=== PATIENT | male | born 1965 | race Caucasian/White ===

== ENCOUNTER 2017-01-17 09:02 | Emergency (ER) | payer MEDICARE ==
[2017-01-17] MEDS ORDERED: 0.9% SODIUM CHLORIDE 250ML BAG IV ONE (09:24)
--- NOTE | 2017-01-17 09:33 | Emergency Department Record ---
History of Present Illness - General Chief complaint: Extremity Problem Stated complaint: R LEG SWOLLEN Time Seen by Provider: 01/17/17 09:12 Source: Patient Mode of Arrival: Ambulatory - History of Present Illness Initial comments: The patient states that two days ago he was especially fatigued the entire day and slept. Yesterday he noticed his right lower leg was red, warm and swollen. He states he is short of breath when he walks across the department today. He denies f,c,n,v,d,cp, st, cough, scar. He has a history of CVA twice in 2012 and 2013; DM, [place] 2014; 3 cardiac stents and a valve replacement 2008, CHF, COPD. He denies PE, DVT in the past. He takes aspirin daily but no other blood thinners. MD Complaint: Extremity pain, Extremity swelling Onset/Timin -: Days(s) Location: Right, Knee Radiation: Proximal Severity scale (1-10): 4 Quality: Aching Consistency: Constant Improves with: Nothing - Related Data Home Medications Medication Instructions Recorded Confirmed Last Taken Aspirin 81 mg PO QD tab.chew 06/20/16 01/17/17 1 Day Ago ~01/16/17 Furosemide [Lasix] 20 mg PO DAILY 01/17/17 01/17/17 1 Day Ago ~01/16/17 Losartan Potassium [Cozaar] 50 mg PO DAILY 01/17/17 01/17/17 1 Day Ago ~01/16/17 Allergies Allergy/AdvReac Type Severity Reaction Status Date / Time No Known Drug Allergies Allergy Verified 01/17/17 09:10 Travel Screening - Travel/Exposure Within Last 30 Days Have you traveled within the last 30 days?: No - Travel/Exposure Within Last Year Have you traveled outside the [place] in the last year?: No - Additonal Travel Details Have you been exposed to anyone with a communicable illness?: No - Travel Symptoms Symptom Screening: None Review of Systems Reviewed: No additional complaints except as noted below Constitutional: Reports: As per HPI. Denies: Chills, Fever, Malaise, Night sweats, Weakness, Weight change Eyes: Reports: As per HPI. Denies: Eye discharge, Eye pain, Photophobia, Vision change ENT: Reports: As per HPI. Denies: Congestion, Dental pain, Ear pain, Epistaxis , Hearing loss, Throat pain Respiratory: Reports: As per HPI. Denies: Cough, Dyspnea, Hemoptysis, Stridor, Wheezes Cardiovascular: Reports: As per HPI. Denies: Arrhythmia, Chest pain, Dyspnea on exertion, Edema, Murmurs, Orthopnea, Palpitations, Paroxysmal nocturnal dyspnea, Rheumatic Fever, Syncope Endocrine: Reports: As per HPI. Denies: Fatigue, Heat or cold intolerance, Polydipsia, Polyuria Gastrointestinal: Reports: As per HPI. Denies: Abdominal pain, Constipation, Diarrhea, Hematemesis, Hematochezia, Melena, Nausea, Vomiting Genitourinary: Reports: As per HPI. Denies: Dysuria, Frequency, Hematuria, Incontinence, Retention, Testicular pain, Testicular mass, Urgency Musculoskeletal: Reports: As per HPI. Denies: Arthralgia, Back pain, Gout, Joint swelling, Myalgia, Neck pain Skin: Reports: As per HPI. Denies: Bruising, Change in color, Change in hair/ nails, Lesions, Pruritus, Rash Neurological: Reports: As per HPI. Denies: Abnormal gait, Confusion, Headache, Numbness, Paresthesias, Seizure, Tingling, Tremors, Vertigo, Weakness Psychiatric: Reports: As per HPI. Denies: Anxiety, Auditory hallucinations, Depression, Homicidal thoughts, Suicidal thoughts, Visual hallucinations Hematological/Lymphatic: Reports: As per HPI. Denies: Anemia, Blood Clots, Easy bleeding, Easy bruising, Swollen glands Past Medical History - SOCIAL HISTORY Smoking Status: Former smoker Alcohol Use: None Drug Use: None - RESPIRATORY Hx Respiratory Disorders: Yes - CARDIOVASCULAR Hx Cardio Disorders: Yes Hx Cardiac Cath: Yes Hx Chest Pain: Yes (intermittent since CVA) Hx Heart Attack: Yes (shown 06/2015 ekg) Hx Hypertension: Yes Hx Coronary Artery Disease: Yes Hx Coronary Stent: Yes (x's 3 in 2008) Hx Percutaneous Transluminal Coronary Angioplasty (PTCA): Yes Comment:: high cholesterol - NEURO Hx Neuro Disorders: Yes Hx CVA: Yes (2012, 2013) Hx Dizziness: Yes (off balance before stroke) Hx Weakness: Yes (generalized weakness since CVA) - GI Hx GI Disorders: No - Hx Genitourinary Disorders: No - ENDOCRINE Hx Endocrine Disorders: Yes - MUSCULOSKELETAL Hx Musculoskeletal Disorders: Yes Hx Arthritis: Yes - PSYCH Hx Psych Problems: No - HEMATOLOGY/ONCOLOGY Hx Hematology/Oncology Disorders: No Family Medical History Any Significant Family History?: Yes Hx Heart Disease: Father, Brother/Sister *Heart Comment: [place] Physical Exam - General General Appearance: Alert, Oriented x3, Cooperative, Mild distress (limping into room, SOB) - Head Head exam: Normal inspection - Eye Eye exam: Normal appearance, PERRL Pupils: Normal accommodation - ENT ENT exam: Normal exam, Mucous membranes moist, Normal external ear exam, Normal orophraynx, TM's normal bilaterally Ear exam: Normal external inspection. negative: External canal tenderness Nasal Exam: Normal inspection. negative: Discharge, Sinus tenderness Mouth exam: Normal external inspection, Tongue normal Teeth exam: Normal inspection. negative: Dental caries Throat exam: Normal inspection. negative: Tonsillar erythema, Tonsillar exudate - Neck Neck exam: Normal inspection, Full ROM. negative: Lymphadenopathy, Meningismus , Tenderness - Respiratory Respiratory exam: Decreased breath sounds, Prolonged expiratory. negative: Respiratory distress - Cardiovascular Cardiovascular Exam: Normal rhythm, Normal heart sounds, Tachycardia - GI/Abdominal GI/Abdominal exam: Soft, Normal bowel sounds. negative: Tenderness - Rectal Rectal exam: Deferred - exam: Deferred - Extremities Extremities exam: Full ROM, Normal capillary refill, Pedal edema, Tenderness ( tender, warm, erythematous right calf which is NONcircumferential, no calf tenderness; proximal lymphangitic spread up anterior inner thigh to groin. CMS intact distally with swelling distally.) - Back Back exam: Reports: Normal inspection, Full ROM. Denies: Muscle spasm, Rash noted, Tenderness - Neurological Neurological exam: Alert, Normal gait, Oriented X3, Reflexes normal - Psychiatric Psychiatric exam: Normal affect, Normal mood - Skin Skin exam: Dry, Intact, Normal color, Warm Course Vital Signs 01/17/17 09:04 Temperature 98.2 F Pulse Rate 115 H Respiratory 18 Rate Blood Pressure 128/78 Pulse Ox 95 - Reevaluation(s) Reevaluation #1: Spoke with Dr. Benitez forensic chemist certified professional ergonomist at [facility] who refused to take patient as he believes the patient doesn't need a doppler. Spoke with 01/17/17 11:18 Reevaluation #2: SHANIQUE Montenegro N.P. for Dr. Kowalski who accepts patient for direct admit at [facility]. 01/17/17 11:43 Medical Decision Making - Management Options MDM Management: Additional Work-up Planned (e.g. ADM/Transfer/OP Study) ( transfer to [facility] for direct admit and dopplers of leg.) - Data Complexity MDM Data: Labs Ordered and/or Reviewed, X-Ray Ordered and/or Reviewed (CXR two view: Mild CMG, no acute abnormality per radiologist.), EKG Ordered and/or Reviewed - Lab Data Result diagrams: 01/17/17 09:30 01/17/17 09:30 - EKG Data -: EKG Interpreted by Me (Sinus tachycardia at 103; old LBBB compared with .) Disposition Disposition: Transfer Clinical Impression: Cellulitis of leg, right, Lymphangitis, acute, lower leg CHF (congestive heart failure) Qualifiers: Congestive heart failure type: unspecified congestive heart failure type Congestive heart failure chronicity: chronic Qualified Code(s): I50.9 - Heart failure, unspecified COPD (chronic obstructive pulmonary disease) Qualifiers: COPD type: unspecified COPD Qualified Code(s): J44.9 - Chronic obstructive pulmonary disease, unspecified Disposition: Acute Care Hospital Transfer Transfer To: [facility] Reason For Transfer: patient needs dopplers, no dopplers here Accepting Physician: Dr. Kowalski/ Moni Mathew Time Discussed w/Accepting Physician: 11:46 Condition: (2) Stable
[2017-01-17 09:45] LABS: HEMOGLOBIN 12.3 gm/dl (14.0-18.0); MEAN CELL VOLUME 75.5 fl (81-97); MEAN CORPUSCULAR HEMOGLOBIN 23.2 pg (27-33); MEAN CORPUSCULAR HGB CONC 30.8 g/dl (32-36); MEAN PLATELET VOLUME 12.7 fl (7.4-10.4); PLATELET COUNT 177 K/uL (130-400); RED CELL DISTRIBUTION WIDTH 16.1 % (11.5-14.5); WHITE BLOOD COUNT W/O DIFF 12.4 K/uL (4.2-12.2)
[2017-01-17 09:55] LABS: LACTIC ACID 1.9 mmol/L (0.7-2.1)
[2017-01-17] MEDS ORDERED: AMPICILLIN SODIUM IVPB ONE (09:57)
[2017-01-17] MEDS ORDERED: SULBACTAM NA IVPB ONE (09:57)
[2017-01-17] MEDS ORDERED: SODIUM CHLORIDE 0.9% IVPB ONE (09:57)
[2017-01-17] MEDS ORDERED: AMPICILLIN SODIUM/SULBACTAM NA 3 G in 0.9 % SODIUM CHLORIDE 100ML 100 ML IVPB SCH (10:00)
[2017-01-17 10:01] LABS: INR 0.95; PROTHROMBIN TIME (PATIENT) 10.7 SECONDS (9.5-12.1)
[2017-01-17 10:08] LABS: BLOOD UREA NITROGEN 16 mg/dL (9-20); CREATININE 0.7 mg/dL (0.66-1.25); EST GLOMERULAR FILTRATION RATE > 60 ml/min; GLUCOSE,RANDOM 289 mg/dL (70-110); TROPONIN I 0.014 ng/mL (0.00-0.034)
--- NOTE | 2017-01-20 12:07 | RADIOLOGY REPORT ---
EXAM: CHEST, TWO VIEWS HISTORY: SEPSIS. TECHNIQUE: Two views of the chest were obtained. Comparison: Chest x-ray 05/24/16. FINDINGS: Sternotomy wires are present. The lungs are clear. The cardiac silhouette is mildly enlarged. The diaphragm and osseous structures are unremarkable. IMPRESSION: MILD CARDIOMEGALY. NO ACUTE INTRATHORACIC PROCESS. JOB NUMBER: [id number] MTDD
== END 2017-01-17 12:58 | disposition short-term general hospital (02) ==
LOC: ER 09:02
DX: L03.115 Cellulitis of right lower limb (principal); L03.125 Acute lymphangitis of right lower limb; E11.9 Type 2 diabetes mellitus without complications; E78.00 Pure hypercholesterolemia, unspecified; J44.9 Chronic obstructive pulmonary disease, unspecified; I50.9 Heart failure, unspecified
CPT/HCPCS: 71020; 80048; 80053; 80061; 83036; 83605; 83880; 84484; 85027; 85610; 93005; 93010; 96365; 96366; 99285; J0295